=== PATIENT | female | born 1940 | race Two or more races ===

== ENCOUNTER 2022-01-16 06:54 | Day surgery (SDC) | payer OTHER ==
[~2022-01-16 06:54] MED LIST: ASPIRIN1 GM MC; COZAAR50 MG PO; ENABLEX15 MG PO; JANUMET 50-1,1 UDTAB PO; LEVEM; LEVEMIR; LIPIT PO; LIPITOR40 MG PO; LYRICA50 MG PO; NORVASC5 MG PO; OSTERA TABLET1 EACH PO; PROBIOTIC1 EAC3 PO; STRESS FORMULA1 EACH PO; [UNRECOGNIZED DRUG - OTHER] PO
[2022-01-16] MEDS ORDERED: PERCOCET 5-3251 EACH PO (15:18)
== END 2022-01-16 17:30 | disposition home or self-care (01) ==
LOC: CIR.AMB 06:54
PROVIDERS: ATTEND Surgery
DX: N84.3 Polyp of vulva (principal); L85.9 Epidermal thickening, unspecified; L91.8 Other hypertrophic disorders of the skin; K64.4 Residual hemorrhoidal skin tags; K62.89 Other specified diseases of anus and rectum; I10 Essential (primary) hypertension; G47.33 Obstructive sleep apnea (adult) (pediatric); Z99.89 Dependence on other enabling machines and devices; E11.9 Type 2 diabetes mellitus without complications; K21.9 Gastro-esophageal reflux disease without esophagitis; Z20.822 Contact with and (suspected) exposure to COVID-19